=== PATIENT | female | born 1960 | race Caucasian/White ===

== ENCOUNTER 2022-12-14 19:16 | Emergency (ER) | payer SELFPAY ==
[2022-12-14 19:20] VITALS: BP 163/85; PULSE 85; RESP 15; TEMP 36.6; O2SAT 99; BMI 27.1
[2022-12-14 19:25] VITALS: BMI 27.3
[2022-12-14 19:26] VITALS: BP 169/85; PULSE 70; RESP 10; O2SAT 99
[2022-12-14 19:42] LABS: Absolute Lymphocyte Count 2.96 X10^3/uL (0.83-4.51); Absolute Neutrophil Count 3.6 X10^3/uL (2.0-7.7); Basophil% 1.3 % (0-1); Eosinophils% 5.2 % (0-5); Hematocrit 38.4 % (37-47); Hemoglobin 12.8 g/dL (12.0-15.0); Lymphocyte # 2.96 X10^3/ul (0.83-4.51); Lymphocyte % 38.4 % (19-41); Mean Corp Hgb Conc 33.3 g/dL (32-36); Mean Corpuscular Hgb 28.8 pg (27.0-32.0); Mean Corpuscular Volume 86.5 fL (81-99); Mean Platelet Vol. 10.4 fl (6.2-12.0); Monocyte% 7.8 % (0-10); NRBC Flagged by Analyzer 0 % (0-5); Neutrophil # 3.63 X10^3/uL (2.7-7.7); Platelet Count 313 K/mm3 (150-450); RBC Distribution Width SD 40.9 fl (35.1-43.9); Red Blood Count 4.44 M/mm3 (4.2-5.4); White Blood Count 7.7 K/mm3 (4.4-11.0)
--- NOTE | 2022-12-14 19:42 | CT_ITS ---
STUDY: CT BRAIN WITHOUT CONTRAST REASON FOR EXAM: Female, 62 years old. RIGHT facial weakness TECHNIQUE: Transaxial CT imaging of the brain was performed without administration of intravenous contrast material. Individualized dose optimization techniques were used for this CT. COMPARISON: 16 FINDINGS: Normal calvarium. Normal soft tissues. Normal size ventricles and extra-axial spaces for the patient''s age. Normal white matter tracts of the cerebral hemispheres. Normal basal ganglia and thalami. Normal brainstem. Normal cerebellum. There is no intracranial hemorrhage. There are no findings of an acute ischemic infarction. Degenerative changes of the mandibular condyles. ASPECTS 10 CT/Brain/Head without Contrast IMPRESSION: There are no acute intracranial findings. Electronically Signed: Morteza Rosario MD at 20:01 EDT ,
--- NOTE | 2022-12-14 19:54 | EX.ED.DYSGE1 ---
HPI History of Present Illness Chief Complaint: Neuro S/Sx Informant: patient and spouse/S.O. Narrative Narrative: Patient states that she is pretty sure she has Gomez's palsy. She did see a chiropractor who said they can help her with this. But they did recommend she be evaluated for stroke. Patient states that about 8 days ago she had weakness of the left side of her face. She has had some tingling of her right fingertips although its not tingling now. She has never had weakness or discoordination. No involvement of the legs. 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 She thinks it was on the left side like this 1 but is not completely certain. Patient's not having headaches although she occasionally does get 1. She is not having 1 now. Patient has no medical problems. She has no blood pressure or diabetes history of heart disease or strokes. She is a non-smoker. No trauma. She has been taping her eyes closed since this happened and is having no ocular symptoms. [facility] Medical History Gomez's palsy delivery delivered Home Medications prednisone 10 mg tablet 10 mg PO DAILY #48 TABLETS 12/14/22 [Rx Last Taken Unknown] valacyclovir 1 gram tablet 1,000 mg PO TID #21 tabs 12/14/22 [Rx Last Taken Unknown] Allergy/AdvReac Type Severity Reaction Status Date / Time Penicillins Allergy Unknown Verified 12/14/22 19:23 Sulfa (Sulfonamide Allergy Swelling Verified 12/14/22 19:23 Antibiotics) Family History Father Cancer lung Mother Emphysema lung Surgical History History of laparoscopy Social History Smoking Status: Never smoker substance use type: does not use caffeine: Yes seatbelt use: always do you feel safe at home: Yes additional social history: Yohannes- 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 ROS ROS ED Constitutional Constitutional ED: Denies chills or fever(s) Eyes Eyes: Reports other Details: Trouble closing eyes but no ocular complaints specifically ; Denies blurry vision, change in vision or diplopia ENT ENT ED: Reports other Details: Left facial weakness Cardiovascular Cardiovascular: Denies chest pain or palpitations Respiratory/Chest Respiratory/Chest: Denies cough or dyspnea Gastrointestinal Gastrointestinal: Denies nausea or vomiting Musculoskeletal Musculoskeletal: Denies arthralgias, back pain, myalgias or neck pain Integumentary Denies abscess, Abrasions or rash Neurologic Neurologic: Reports other Details: History of present illness ; Denies headache(s) Endocrine Endocrinology: Denies polydipsia or polyuria Hematologic/Lymphatic Hematologic/Lymphatic: Denies easy bleeding or easy bruising Allergic/Immunologic Allergic/Immunologic ED: Denies urticaria EXAM Physical Exam Narrative Exam Narrative: Patient is awake alert no acute distress. HEENT does show left-sided facial weakness including the forehead all consistent with Gomez's palsy. I do not see any rash. No rash in the ears. Negative [place] sign. Eyes show no inflammation or injection. No tearing. Eyelids do not fully close well. Neck shows no JVD. There is no bruit heard. No pain with motion. Lungs are clear bilaterally. Saturations are normal at 99% on room air showing no hypoxia. Heart is regular. No irregularity or murmur. Peripheral pulses are equal. Abdomen is soft completely nontender and nondistended. Extremities show no edema or cords. Skin shows no mottling or rashes. Neurologic shows weakness on the left side of the face. Definite involvement of the forehead all consistent with Gomez's palsy. But I am not getting any weakness numbness discoordination no visual field cut at all. She has weakness on the face but other than that her NIH would be 0. I think the weakness is consistent with Gomez's. Const Vital Signs: 12/14/22 19:20 12/14/22 19:26 12/14/22 20:32 Temperature 97.9 F Temperature Source Temporal Pulse Rate 85 70 75 Respiratory Rate 15 10 L 19 H Blood Pressure 163/85 H 169/85 H 127/73 H Blood Pressure Mean 111 113 91 Pulse Ox 99 99 97 Oxygen Delivery Method Room Air Room Air Room Air MDM MDM MDM Narrative Medical decision making narrative: My independent interpretation the patient's CT shows no bleed mass or acute process. Final reading by read shows no acute intracranial's Patient CBC is normal. Her electrolytes are normal other than mild elevation of glucose at 130. I talked with the patient about this and this can be rechecked. Our [id number] glucose here was 107. I talk with her about risks and benefits. She is going to continue taping the eye. I explained that this is when the greatest causes of long-term morbidity. Even though this has been 8 days. We will try antivirals and steroids. We are looking at the maximum benefit that we can. She is 8 days into this has significant weakness and still cannot close the eyes and that is concerning. We explained that these medicines can get benefit started in the first 3 days. We are not certain they will get benefit now but we are going to maximize that chance. Lab Data Labs: Laboratory Results - last 24 hr 12/14/22 12/14/22 12/14/22 19:26 19:26 19:33 WBC 7.7 RBC 4.44 Hgb 12.8 Hct 38.4 MCV 86.5 MCH 28.8 MCHC 33.3 RDW Std Deviation 40.9 RDW Coeff of Melba 13.0 Plt Count 313 MPV 10.4 Immature Gran % (Auto) 0.300 Neut % (Auto) 47.0 Lymph % (Auto) 38.4 [place] % (Auto) 7.8 Eos % (Auto) 5.2 H Baso % (Auto) 1.3 H Absolute Neuts (auto) 3.6 Absolute Lymphs (auto) 2.96 Nucleated RBC % 0 Sodium 139 Potassium 3.5 Chloride 107 Carbon Dioxide 25.0 Anion Gap 7 BUN 8 Creatinine 0.94 Estim Creat Clear Calc 57.35 Est GFR (MDRD) Af Amer 78 Est GFR (MDRD) Non-Af 64 BUN/Creatinine Ratio 8.5 L Glucose 131 H Calcium 9.1 POC Glucose 107 H Radiography Diagnostic Testing: Clinical Impression(s) from Imaging Studies Brain CT 12/14/22 19:42 IMPRESSION: There are no acute intracranial findings. Electronically Signed: Morteza Rosario MD at 20:01 EDT , Discharge Plan Triage Chief Complaint: Neuro S/Sx ED Provider: Hernando Childs Dx/Rx/DC Orders Clinical Impression: Gomez's palsy Instructions: ED Gomez's Palsy Prescriptions: New valacyclovir 1 gram tablet 1,000 mg PO TID Qty: 21 0RF prednisone 10 mg tablet 10 mg PO DAILY Qty: 48 0RF Rx Instructions: 6 po qd x 3 days, 4 po qd x 3 days, 2 po qd x 3 days, 1 po qd x 3 days Primary Care Provider: Care Physician,No Primary Referrals: Care Physician,No Primary [Primary Care Provider] - Activity Restrictions/Additional Instructions: Follow-up with your appointment this coming week as scheduled.
[2022-12-14 19:56] LABS: Bedside Glucose 107 mg/dL (74-106)
[2022-12-14 19:57] LABS: Anion Gap 7 (5-15); BUN 8 mg/dL (7-18); BUN/Creat Ratio 8.5 RATIO (10-20); Calcium,Total 9.1 mg/dL (8.5-10.1); Chloride 107 mmol/L (98-107); Creatinine, Serum 0.94 mg/dL (0.55-1.02); EST Glomerular Filtration Rate 64 mL/min (>60); Est Glom Filt Rate - Afr Amer 78 mL/min (>60); Estimated Creatinine Clearance 57.35 ml/min; Glucose 131 mg/dL (74-106); Potassium 3.5 mmol/L (3.5-5.1); Sodium Level 139 mmol/L (136-145)
[2022-12-14 20:32] VITALS: BP 127/73; PULSE 75; RESP 19; O2SAT 97
[2022-12-14 20:54] VITALS: BP 125/77; PULSE 73; RESP 17; O2SAT 97
== END 2022-12-14 20:55 | disposition home or self-care (01) ==
LOC: ED 19:41
PROVIDERS: Emergency Provider Emergency Medicine; Visit Provider Emergency Medicine
DX: G51.0 Bell's palsy (principal); Z79.52 Long term (current) use of systemic steroids
CPT/HCPCS: 70450; 80048; 82962; 85025; 99283; A4216

== ENCOUNTER → 2024-12-18 | Outpatient (CLI) | payer MEDICARE, SELFPAY | END | disposition home or self-care (01) | LOC: LABSPEC 16:33 | PROVIDERS: Referring Provider Advanced Practice Midwife; Visit Provider Advanced Practice Midwife | DX: N94.9 Unspecified condition associated with female genital organs and menstrual cycle (principal); R10.2 Pelvic and perineal pain | CPT/HCPCS: 87070; 87077; 87205 ==

== ENCOUNTER → 2025-04-10 | Outpatient (CLI) | payer MEDICARE, SELFPAY ==
--- NOTE | 2025-04-10 12:39 | RAD_ITS ---
PROCEDURE: CHEST PA AND LATERAL 04/10/2025 REASON FOR EXAM: COUGH TECHNIQUE: CHEST PA AND LATERAL COMPARISON: None FINDINGS: Hardware: None Heart: The heart is nonenlarged. Mediastinum: The mediastinal contour is unremarkable. Lungs: Hyperinflation. Increased linear markings in the lingular segment of the left upper lobe suggestive of either atelectasis and/or early infiltrate. Follow-up recommended. Bones: Degenerative changes are identified within the thoracic spine. RAD/Chest PA and Lateral IMPRESSION: Hyperinflation. Increased linear markings in the lingular segment of the left upper lobe sugges tive of linear atelectasis and/or early infiltrate. Follow-up recommended. Reading Location: [facility]
== END | disposition home or self-care (01) ==
LOC: MTRAD 12:35
PROVIDERS: Referring Provider Physician Assistant Surgical; Visit Provider Physician Assistant Surgical
DX: R05.9 Cough, unspecified (principal)
CPT/HCPCS: 71046